=== PATIENT | female | born 1930 | race Caucasian/White ===

== ENCOUNTER 2016-06-17 20:45 | Emergency (ER) | payer MEDICARE ==
--- NOTE | 2016-06-17 21:31 | ERRECORD ---
[facility] EMERGENCY RECORD HPI FALL (20:56 [facility]) CHIEF COMPLAINT: Patient presents for evaluation of fall, from standing, landing on tile floor, landing on head. HISTORIAN: History provided by patient, 85F presents with EMS from [place] after a mechanical fall. States she tripped and fell, hitting her head on the tile floor. Denies palpitations, chest pain, or lightheadedness before the fall. Denies neck pain, denies LOC. Complains only of head pain in the area of the impact. Denies chest pain or shortness of breath. LOCATION: Symptoms are localized, most severe to right parietal frontal lobe. TIME COURSE: Sudden onset of symptoms, just prior to arrival. EXACERBATED BY: Patient's condition exacerbated by nothing. RELIEVED BY: Patient's condition relieved by nothing because patient has not tried anything for relief. RISK FACTORS: Risk factors for spinal injury, not applicable for this patient, Risk factors for intracranial bleed, include age very old. ROS (20:58 [facility]) CONSTITUTIONAL: Negative constitutional review of systems, Historian denies chills, denies fever. EYES: Negative eye review of systems, Historian denies eye pain, denies vision changes. ENT: Negative ears, nose, throat review of systems, Historian denies rhinorrhea, Historian denies sore throat, Historian denies voice changes. Large contusion right frontal lobe. CARDIOVASCULAR: Negative cardiovascular review of systems, Historian denies chest pain, denies palpitations. RESPIRATORY: Negative respiratory review of systems, Historian denies cough, denies shortness of breath. GI: Negative gastrointestinal review of systems, Historian denies abdominal pain, denies constipation, denies diarrhea, denies nausea, denies vomiting. GENITOURINARY FEMALE: Negative genitourinary review of systems, Historian denies dysuria, denies frequency. MUSCULOSKELETAL: Negative musculoskeletal review of systems, Historian denies back pain, denies fall, denies injury. SKIN: Negative skin review of systems, Historian denies rash, denies skin changes. NEUROLOGIC: Negative neurologic review of systems, Historian denies headache, denies mental status changes, denies paralysis, denies paresthesias, denies sensory changes. HEMO/LYMPHATIC: Normal hematologic/lymphatic system review, Historian denies abnormal blood clotting. ALLERGIC/IMMUNOLOGIC: Normal allergy/immunologic system review, Historian denies frequent infections. PAST MEDICAL HISTORY (21:00 [facility]) &a-1R&a+25V*p+0X*[id number]*c202B*c15G*c2P*p-0X&a-25V&a+1R Name: Eboni Cartagena : 1930 F85 MedRec: [id number] AcctNum: [id number] Prepared: [facility] Jun 17, 2016 22:54 by Interface Page 1 of 5 pMD [facility] EMERGENCY RECORD MEDICAL HISTORY: Past medical history includes history of diabetes, Notes: VTE, Past medical history includes cardiac history, arrhythmia, atrial fibrillation, unspecified valvular heart disease, Treated with thrombolytics, on WARFARIN, Treated with a pacemaker, Past medical history includes history of diabetes, Type II, Past medical history includes gastrointestinal disease, gastroesophageal reflux disease, Past medical history includes hematological history, iron deficiency anemia, Past medical history includes history of hyperlipidemia, high cholesterol, high triglycerides, Past medical history includes history of hypertension, which has been treated. REVIEWED 06/17/16. 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 REVIEWED 06/17/16. PSYCHIATRIC HISTORY: no history of suicidal ideations, No history of homicidal ideations, Psychiatric history includes, anxiety, depression. REVIEWED 06/17/16. SOCIAL HISTORY: Patient denies alcohol use, Patient denies drug use, Patient has no smoking history, Lives at home. REVIEWED 06/17/16. KNOWN ALLERGIES amiodarone (Unconfirmed) clonazepam (Unconfirmed): Reaction: HALLUCINATIONS cyclobenzaprine HCl (Unconfirmed): Reaction: HALLUCINATIONS Flexeril (Unconfirmed) KlonoPIN (Unconfirmed) lorazepam (Unconfirmed) morphine (Unconfirmed) CURRENT MEDICATIONS ferrous sulfate: TABLET : Strength - 325 mg (65 mg iron) : ORAL Patient Dose: 1 tab(s) Oral once a day. (21:24 [facility]) lisinopril: TABLET : Strength - 5 mg : ORAL Patient Dose: 1/2 tab(s) Oral once a day. (21:24 [facility]) Toprol XL: TABLET, EXTENDED RELEASE 24 HR : Strength - 100 mg : ORAL Patient Dose: 1 cap(s) Oral once a day. (21:24 [facility]) atorvastatin: TABLET : Strength - 40 mg : ORAL Patient Dose: 1 tab(s) Oral once a day (at bedtime). (21:24 [facility]) meclizine: TABLET : Strength - 25 mg : ORAL Patient Dose: 12.5 mg Oral every 6 hours PRN.VERTIGO. (21:24 [facility]) &a-1R&a+25V*p+0X*[id number]*c202B*c15G*c2P*p-0X&a-25V&a+1R Name: Eboni Cartagena : 1930 F85 MedRec: [id number] AcctNum: [id number] Prepared: Paola Jun 17, 2016 22:54 by Interface Page 2 of 5 pMD [facility] EMERGENCY RECORD Nitrostat: TABLET, SUBLINGUAL : Strength - 0.4 mg : SUBLINGUAL Patient Dose: 1 tab(s) Sublingual See Notes.1 EVERY 5 MINUTES NEEDED FOR CHEST PAIN x 3 DOSES. (21:24 [facility]) calcium: TABLET : Strength - 500 mg : ORAL Patient Dose: 600 mg Oral once a day. (21:24 [facility]) digoxin: TABLET : Strength - 125 mcg : ORAL Patient Dose: 1 tab(s) Oral.M/W/D. (21:24 [facility]) Lasix: TABLET : Strength - 20 mg : ORAL Patient Dose: 40 mg Oral once a day. (21:24 MVIL) sertraline: TABLET : Strength - 50 mg : ORAL Patient Dose: 150 mg Oral once a day. (21:24 MV[facility]) RisperDAL: TABLET : Strength - 0.5 mg : ORAL Patient Dose: 0.5 mg Oral As Needed. (21:24 [facility]) cyanocobalamin (vitamin B-12): TABLET : Strength - 500 mcg : ORAL Patient Dose: Oral once a day. (21:25 [facility]) latanoprost: DROPS : Strength - 0.005 % : OPHTHALMIC Patient Dose: 1 gtt Eyes Both once a day (at bedtime). (21:51 [facility]) nystatin: POWDER (GRAM) : Strength - 100,000 unit/gram : TOPICAL Patient Dose: 1 kolton Topical 3 times a day. (21:59 [facility]) fexofenadine: TABLET : Strength - 180 mg : ORAL Patient Dose: Oral As Needed. (22:02 [facility]) loperamide: TABLET : Strength - 2 mg : ORAL Patient Dose: Oral As Needed. (22:02 [facility]) VITAL SIGNS (20:53 [facility]) VITAL SIGNS: BP: 152/94 (Right Arm), Pulse: 81, Resp: 20, Temp: 97.6 (Oral), Pain: 0, O2 sat: 95 on Room Air, Time: 06/17/2016 20:53. PHYSICAL EXAM (20:58 [facility]) CONSTITUTIONAL: Vital signs reviewed, Patient afebrile, Pulse normal, Blood pressure normal, Respiratory rate normal, Patient appears non toxic, Patient appears pain free, Patient alert and oriented to person, place and time. HEAD: Head exam included findings of, Contusion to right frontal, Abrasion to right frontal, No lacerations, normocephalic. EYES: Eye exam normal, Eye exam included findings of eyelids normal to inspection, Pupils equally round and reactive to light, &a-1R&a+25V*p+0X*k2426X*c202B*c15G*c2P*p-0X&a-25V&a+1R Name: Eboni Cartagena : 1930 F85 MedRec: [id number] AcctNum: [id number] Prepared: Pa[facility] Jun 17, 2016 22:54 by Interface Page 3 of 5 D [facility] EMERGENCY RECORD Extraocular muscles intact, no nystagmus. ENT: ENT exam normal, Ear exam normal, external ear normal, tympanic membranes normal, no bleeding, Pharynx exam normal, Uvula exam normal, Tonsil exam normal, Mouth exam normal, mucous membranes moist, teeth normal. NECK: Neck exam normal, Neck exam included findings of normal range of motion, Trachea midline, no meningeal signs, no cervical adenopathy, no tenderness. RESPIRATORY CHEST: Respiratory and chest exam normal, Respiratory exam included findings of no respiratory distress, Breath sounds clear. CARDIOVASCULAR: Cardiovascular assessment normal, Cardiovascular exam included findings of heart rate regular rate and rhythm, Heart sounds normal. ABDOMEN FEMALE: Abdominal exam included findings of abdomen nontender, Bowel sounds normal, no distension, no mass, no pulsatile masses, no peritoneal signs, no rigidity, no guarding, no rebound, Rovsing's sign absent. BACK: Back exam normal, Back exam included findings of normal inspection, range of motion normal, no tenderness. UPPER EXTREMITY: Upper extremity exam normal, Upper extremity exam included findings of inspection normal, Range of motion normal, Motor strength normal, Sensation intact, Radial pulse normal. LOWER EXTREMITY: Lower extremity exam normal, Lower extremity exam included findings of inspection normal, Range of motion normal, Motor strength normal, Sensation intact, Posterior tibial pulse normal, Pedal pulse normal. NEURO: Neuro exam normal, Neuro exam findings include patient oriented to person, place and time, Speech normal, Gait normal, Cranial nerves intact, no focal motor deficits, no focal sensory deficits. SKIN: Skin exam normal, Skin exam included findings of skin warm, dry, and normal in color, no rash. PSYCHIATRIC: Psychiatric exam normal, Normal affect. DOCTOR NOTES (21:18 [facility]) TEXT: Patient presented after a mechanical trip and fall with head impact. She is neurologically intact with a negative head CT and no concern for syncopal event leading to the fall. She does not need skin repair. She can be safely discharged home to follow up as an outpatient. PATIENT STATUS: Patient's status is unchanged since arrival to emergency department. PATIENT PLAN: The patient will be discharged, The patient will follow up with primary care physician. DATA REVIEWED: Xray data reviewed. PROBLEM LIST No recorded problems &a-1R&a+25V*p+0X*[id number]*c202B*c15G*c2P*p-0X&a-25V&a+1R Name: Eboni Cartagena : 1930 F85 MedRec: [id number] AcctNum: [id number] Prepared: [facility] Jun 17, 2016 22:54 by Interface Page 4 of 5 pMD [facility] EMERGENCY RECORD DIAGNOSIS (21:23 [facility]) FINAL: PRIMARY: head contusion. PRESCRIPTION No recorded prescriptions DISPOSITION PATIENT: Disposition Type: Discharge, Disposition: [facility]. [facility] left the department. (22:47 [facility]) Villegas: DEION=MD Joelle, Andry MVIL=EDWARD Garcia, Taylor &a-1R&a+25V*p+0X*a1997B*c202B*c15G*c2P*p-0X&a-25V&a+1R Name: Eboni Cartagena : 1930 F85 MedRec: [id number] AcctNum: [id number] Prepared: Paola Jun 17, 2016 22:54 by Interface Page 5 of 5 pMD MTDD
--- NOTE | 2016-06-17 21:32 | PICIS ---
[facility] EMERGENCY RECORD TRIAGE (20:55 MVIL) TRIAGE NOTES: S/P FALL AND HIT HER HEAD WITH THE FLOOR. (20:55 MVIL) PATIENT: NAME: Eboni Cartagena, AGE: 85, GENDER: female, : Sat 1930, TIME OF GREET: [place] Jun 17, 2016 20:46, PREFERRED LANGUAGE: Bulgarian, ETHNICITY: Not or , ECODE BILLING MAP: [facility], SSN: [id number], Zip Code: [address], KG WEIGHT: 68.04, HEIGHT/LENGTH: 165.10cm, BMI: 24.96, PHONE: , , , PERSON ID: [id number], PAYMENT: [employer], PCP: DO PACK KRISTEL. (20:55 MVIL) COMPLAINT: FALL. (20:55 MVIL) ADMISSION: URGENCY: 3 Urgent, [facility] SOURCE: [facility], TRANSPORT: CAR, BED: ER -02. (20:55 MVIL) ASSESSMENT: Assessment: S/P FALL. HIT HEAD ON FLOOR. NOT ON ANY BLOOD THINNERS., Symptoms began 06/17/2016 20:59, Symptoms began 30 min ago. (21:00 MVIL) PAIN: No complaint of pain. (21:00 MVIL) IMMUNIZATIONS: Flu vaccine up to date, Tetanus immunization up to date, Pneumococcal vaccine up to date. (21:00 MVIL) SIRS SCORING: Heart Rate 55-109 (0), Temp range 96.8-101.1 (0), respiratory rate 12-24 (0), Mental Status altered: no (0). (21:00 MVIL) TRIAGE SCREENING: Patient denies suicidal ideation, Patient denies presence of domestic violence. (21:00 MVIL) PROVIDERS: TRIAGE NURSE: Taylor Garcia RN. (20:55 MVIL) VITAL SIGNS: BP 152/94, (Right Arm), Pulse 81, Resp 20, Temp 97.6, (Oral), Pain 0, O2 Sat 95, on Room Air, Time 06/17/2016 20:53. (20:53 MVIL) PREVIOUS VISIT ALLERGIES: amiodarone, Flexeril, KlonoPIN. (20:55 MVIL) amiodarone, Flexeril, KlonoPIN. (21:00 MVIL) KNOWN ALLERGIES amiodarone (Unconfirmed) clonazepam (Unconfirmed): Reaction: HALLUCINATIONS cyclobenzaprine HCl (Unconfirmed): Reaction: HALLUCINATIONS Flexeril (Unconfirmed) KlonoPIN (Unconfirmed) lorazepam (Unconfirmed) morphine (Unconfirmed) CURRENT MEDICATIONS ferrous sulfate: TABLET : Strength - 325 mg (65 mg iron) : ORAL Patient Dose: 1 tab(s) Oral once a day. (21:24 MVIL) lisinopril: TABLET : Strength - 5 mg : ORAL Patient Dose: 1/2 tab(s) Oral once a day. (21:24 MVIL) Toprol XL: &a-1R&a+25V*p+0X*y5348Y*c202B*c15G*c2P*p-0X&a-25V&a+1R Name: Eboni Cartagena : 1930 F85 MedRec: [id number] AcctNum: [id number] Prepared: [facility] Jun 17, 2016 23:00 by Interface Page 1 of 7 pMD [facility] EMERGENCY RECORD TABLET, EXTENDED RELEASE 24 HR : Strength - 100 mg : ORAL Patient Dose: 1 cap(s) Oral once a day. (21:24 MVIL) atorvastatin: TABLET : Strength - 40 mg : ORAL Patient Dose: 1 tab(s) Oral once a day (at bedtime). (21:24 MVIL) meclizine: TABLET : Strength - 25 mg : ORAL Patient Dose: 12.5 mg Oral every 6 hours PRN.VERTIGO. (21:24 MVIL) Nitrostat: TABLET, SUBLINGUAL : Strength - 0.4 mg : SUBLINGUAL Patient Dose: 1 tab(s) Sublingual See Notes.1 EVERY 5 MINUTES NEEDED FOR CHEST PAIN x 3 DOSES. (21:24 MVIL) calcium: TABLET : Strength - 500 mg : ORAL Patient Dose: 600 mg Oral once a day. (21:24 MVIL) digoxin: TABLET : Strength - 125 mcg : ORAL Patient Dose: 1 tab(s) Oral.M/W/D. (21:24 MVIL) Lasix: TABLET : Strength - 20 mg : ORAL Patient Dose: 40 mg Oral once a day. (21:24 MVIL) sertraline: TABLET : Strength - 50 mg : ORAL Patient Dose: 150 mg Oral once a day. (21:24 MVIL) RisperDAL: TABLET : Strength - 0.5 mg : ORAL Patient Dose: 0.5 mg Oral As Needed. (21:24 MVIL) cyanocobalamin (vitamin B-12): TABLET : Strength - 500 mcg : ORAL Patient Dose: Oral once a day. (21:25 MVIL) latanoprost: DROPS : Strength - 0.005 % : OPHTHALMIC Patient Dose: 1 gtt Eyes Both once a day (at bedtime). (21:51 MVIL) nystatin: POWDER (GRAM) : Strength - 100,000 unit/gram : TOPICAL Patient Dose: 1 kolton Topical 3 times a day. (21:59 MVIL) fexofenadine: TABLET : Strength - 180 mg : ORAL Patient Dose: Oral As Needed. (22:02 MVIL) loperamide: TABLET : Strength - 2 mg : ORAL Patient Dose: Oral As Needed. (22:02 MVIL) VITAL SIGNS (20:53 MVIL) VITAL SIGNS: BP: 152/94 (Right Arm), Pulse: 81, Resp: 20, Temp: 97.6 (Oral), Pain: 0, O2 sat: 95 on Room Air, Time: 06/17/2016 20:53. &a-1R&a+25V*p+0X*[id number]*c202B*c15G*c2P*p-0X&a-25V&a+1R Name: Eboni Cartagena : 1930 F85 MedRec: [id number] AcctNum: [id number] Prepared: [place] Jun 17, 2016 23:00 by Interface Page 2 of 7 pMD [facility] EMERGENCY RECORD NURSING ASSESSMENT: FOCUSED (21:00 MVIL) CONSTITUTIONAL: Patient arrives, via Emergency Medical Services, FROM [facility], History obtained from patient, Patient appears comfortable, Patient cooperative, Patient alert, Oriented to person, place and time, Skin warm, Skin dry, Skin normal in color, Mucous membranes pink, Mucous membranes moist, Patient is well-groomed, Patient complains of FALL, TRIPPED AND FELL HITTING HER HEAD ON THE FLOOR. HAS HEMATOMA ABOVE RIGHT EYE ON FOREHEAD. PAIN: Onset of pain 06/17/2016 21:02, Patient rates pain as 0 out of 10, Pain exacerbated by nothing, Nothing has been tried to alleviate the pain. EYES: Focused eye assessment finding include pupils equally round and reactive to light, Left pupil 3 mm in size, Right pupil 3 mm in size. NEURO: Focused neuro assessment findings include patient alert, cooperative, No facial droop noted, Speech coherent, no weakness, no numbness. GCS: Eye opening: (4) - Spontaneous, Verbal: (5) - Oriented/conversive, Motor: (6) - Obeys commands/Spontaneous, GCS Total: 15. RESPIRATORY: Focused respiratory assessment findings include breath sounds clear. ABDOMEN: Focused abdominal assessment findings include abdomen soft, non tender, Bowel sounds present. GENITOURINARY FEMALE: Focused genitourinary assessment not applicable. MUSCULOSKELETAL: Focused musculoskeletal assessment findings include normal range of motion. LACERATION: Focused laceration assessment findings include laceration to RIGHT SIDE FOREHEAD ABOVE RIGHT EYE. SAFETY: Side rails up, Cart/Stretcher in lowest position, Family at bedside, Call light within reach, Hospital ID band on. NURSING PROCEDURE: DISCHARGE NOTE (22:04 MVIL) DISCHARGE: Patient discharged to fpc, [facility], Copy of chart sent to fpc with patient, on a stretcher, transported via non-urgent ambulance, accompanied by emergency medical services personnel, Summary of Care printed/ provided, Patient requested and was provided an electronic copy of Discharge Instructions, Transition record given to patient, Discharge instructions given to patient, Above person(s) verbalized understanding of discharge instructions and follow-up care. BELONGINGS: Belongings and valuables with patient at time of discharge include:. NURSING PROCEDURE: NURSE NOTES (22:44 CFRA) NURSES NOTES: Notes: [facility] arrived to ER. Report given by Taylor Lopez RN. Discharge instructions given to EMS. Pt secured to stretcher in stable condition. NAD noted. &a-1R&a+25V*p+0X*[id number]*c202B*c15G*c2P*p-0X&a-25V&a+1R Name: Eboni Cartagena : 1930 F85 MedRec: [id number] AcctNum: [id number] Prepared: TueJun 17, 2016 23:00 by Interface Page 3 of 7 pMD [facility] EMERGENCY RECORD NURSING PROCEDURE: TRANSPORT TO TESTS PATIENT IDENTIFIER: Patient actively involved in identification process, Patient's identity verified by patient stating name, Patient's identity verified by hospital ID bracelet. (21:05 MVIL) TRANSPORT TO TESTS: Transport indicated to facilitate diagnosis, Patient transported to CT scan, via cart, Accompanied by x-ray lot technician. (21:05 MVIL) FOLLOW-UP: After procedure, patient returned to emergency department. (21:16 MVIL) ORDER DETAILS Order Name: CT Brain WO Con, Status: Active, Time: 20:56 06/17/2016, User: DEION, - Ordered for: MD Lai Jason, - Entered by: MD Lai Jason - [facility] Jun 17, 2016 20:56, - Quantity: 1. [facility] CHIEF COMPLAINT: Patient presents for evaluation of fall, from standing, landing on tile floor, landing on head. HISTORIAN: History provided by patient, 85F presents with EMS from [place] after a mechanical fall. States she tripped and fell, hitting her head on the tile floor. Denies palpitations, chest pain, or lightheadedness before the fall. Denies neck pain, denies LOC. Complains only of head pain in the area of the impact. Denies chest pain or shortness of breath. LOCATION: Symptoms are localized, most severe to right parietal frontal lobe. TIME COURSE: Sudden onset of symptoms, just prior to arrival. EXACERBATED BY: Patient's condition exacerbated by nothing. RELIEVED BY: Patient's condition relieved by nothing because patient has not tried anything for relief. RISK FACTORS: Risk factors for spinal injury, not applicable for this patient, Risk factors for intracranial bleed, include age very old. ROS (20:58 [facility]) CONSTITUTIONAL: Negative constitutional review of systems, Historian denies chills, denies fever. EYES: Negative eye review of systems, Historian denies eye pain, denies vision changes. ENT: Negative ears, nose, throat review of systems, Historian denies rhinorrhea, Historian denies sore throat, Historian denies voice changes. Large contusion right frontal lobe. CARDIOVASCULAR: Negative cardiovascular review of systems, Historian denies chest pain, denies palpitations. RESPIRATORY: Negative respiratory review of systems, Historian &a-1R&a+25V*p+0X*a5446A*c202B*c15G*c2P*p-0X&a-25V&a+1R Name: Eboni Cartagena : 1930 F85 MedRec: [id number] AcctNum: [id number] Prepared: TueJun 17, 2016 23:00 by Interface Page 4 of 7 pMD [facility] EMERGENCY RECORD denies cough, denies shortness of breath. GI: Negative gastrointestinal review of systems, Historian denies abdominal pain, denies constipation, denies diarrhea, denies nausea, denies vomiting. GENITOURINARY FEMALE: Negative genitourinary review of systems, Historian denies dysuria, denies frequency. MUSCULOSKELETAL: Negative musculoskeletal review of systems, Historian denies back pain, denies fall, denies injury. SKIN: Negative skin review of systems, Historian denies rash, denies skin changes. NEUROLOGIC: Negative neurologic review of systems, Historian denies headache, denies mental status changes, denies paralysis, denies paresthesias, denies sensory changes. HEMO/LYMPHATIC: Normal hematologic/lymphatic system review, Historian denies abnormal blood clotting. ALLERGIC/IMMUNOLOGIC: Normal allergy/immunologic system review, Historian denies frequent infections. PAST MEDICAL HISTORY (21:00 MVIL) MEDICAL HISTORY: Past medical history includes history of diabetes, Notes: VTE, Past medical history includes cardiac history, arrhythmia, atrial fibrillation, unspecified valvular heart disease, Treated with thrombolytics, on WARFARIN, Treated with a pacemaker, Past medical history includes history of diabetes, Type II, Past medical history includes gastrointestinal disease, gastroesophageal reflux disease, Past medical history includes hematological history, iron deficiency anemia, Past medical history includes history of hyperlipidemia, high cholesterol, high triglycerides, Past medical history includes history of hypertension, which has been treated. REVIEWED 06/17/16. 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 REVIEWED 06/17/16. PSYCHIATRIC HISTORY: no history of suicidal ideations, No history of homicidal ideations, Psychiatric history includes, anxiety, depression. REVIEWED 06/17/16. SOCIAL HISTORY: Patient denies alcohol use, Patient denies drug use, Patient has no smoking history, Lives at home. REVIEWED 06/17/16. PHYSICAL EXAM (20:58 [facility]) CONSTITUTIONAL: Vital signs reviewed, Patient afebrile, Pulse normal, Blood pressure normal, Respiratory rate normal, Patient appears non toxic, Patient appears pain free, Patient alert and oriented to person, place and time. HEAD: Head exam included findings of, Contusion to right frontal, Abrasion to right frontal, No lacerations, normocephalic. &a-1R&a+25V*p+0X*l2225W*c202B*c15G*c2P*p-0X&a-25V&a+1R Name: Eboni Cartagena : 1930 F85 MedRec: [id number] AcctNum: [id number] Prepared: [place] Jun 17, 2016 23:00 by Interface Page 5 of 7 pMD [facility] EMERGENCY RECORD EYES: Eye exam normal, Eye exam included findings of eyelids normal to inspection, Pupils equally round and reactive to light, Extraocular muscles intact, no nystagmus. ENT: ENT exam normal, Ear exam normal, external ear normal, tympanic membranes normal, no bleeding, Pharynx exam normal, Uvula exam normal, Tonsil exam normal, Mouth exam normal, mucous membranes moist, teeth normal. NECK: Neck exam normal, Neck exam included findings of normal range of motion, Trachea midline, no meningeal signs, no cervical adenopathy, no tenderness. RESPIRATORY CHEST: Respiratory and chest exam normal, Respiratory exam included findings of no respiratory distress, Breath sounds clear. CARDIOVASCULAR: Cardiovascular assessment normal, Cardiovascular exam included findings of heart rate regular rate and rhythm, Heart sounds normal. ABDOMEN FEMALE: Abdominal exam included findings of abdomen nontender, Bowel sounds normal, no distension, no mass, no pulsatile masses, no peritoneal signs, no rigidity, no guarding, no rebound, Rovsing's sign absent. BACK: Back exam normal, Back exam included findings of normal inspection, range of motion normal, no tenderness. UPPER EXTREMITY: Upper extremity exam normal, Upper extremity exam included findings of inspection normal, Range of motion normal, Motor strength normal, Sensation intact, Radial pulse normal. LOWER EXTREMITY: Lower extremity exam normal, Lower extremity exam included findings of inspection normal, Range of motion normal, Motor strength normal, Sensation intact, Posterior tibial pulse normal, Pedal pulse normal. NEURO: Neuro exam normal, Neuro exam findings include patient oriented to person, place and time, Speech normal, Gait normal, Cranial nerves intact, no focal motor deficits, no focal sensory deficits. SKIN: Skin exam normal, Skin exam included findings of skin warm, dry, and normal in color, no rash. PSYCHIATRIC: Psychiatric exam normal, Normal affect. EVENTS TRANSFER: Triage to Emergency Emergency Room -02. (TueJun 17, 2016 20:55 MVIL) Removed from Emergency Emergency Room -02. (22:47 MVIL) [facility] TEXT: Patient presented after a mechanical trip and fall with head impact. She is neurologically intact with a negative head CT and no concern for syncopal event leading to the fall. She does not need skin repair. She can be safely discharged home to follow up as an outpatient. PATIENT STATUS: Patient's status is unchanged since arrival to emergency department. &a-1R&a+25V*p+0X*y6205I*c202B*c15G*c2P*p-0X&a-25V&a+1R Name: Eboni Cartagena : 1930 F85 MedRec: [id number] AcctNum: [id number] Prepared: TueJun 17, 2016 23:00 by Interface Page 6 of 7 pMD [facility] EMERGENCY RECORD PATIENT PLAN: The patient will be discharged, The patient will follow up with primary care physician. DATA REVIEWED: Xray data reviewed. PROBLEM LIST No recorded problems [facility]AG[facility]IS (21:23 [facility] FINAL: PRIMARY: head contusion. DISPOSITION PATIENT: Disposition Type: Discharge, Disposition: *Discharge Home. (21:23 JJA) Patient left the department. (22:47 MVIL) IN[facility]CTION (21:24 [facility] DISCHARGE: SCALP CONTUSION W/ WAKE UP, FALL PREVENTION. FOLLOWUP: DO PACK KRISTEL, Family Practice, [address] [address], [phone]. SPECIAL: Fall prevention. Follow up with Dr. Pack. Return to the ED if you develop worsening headache. PRESCRIPTION No recorded prescriptions ADMIN (21:24 [facility]) DIGITAL SIGNATURE: MD Lai Jason. Villegas: CFRA=EDWARD Frost, Catherine JC=MD Lai Jason MVIL=EDWARD Garcia, Taylor &a-1R&a+25V*p+0X*h8593X*c202B*c15G*c2P*p-0X&a-25V&a+1R Name: Eboni Cartagena : 1930 F85 MedRec: [id number] AcctNum: [id number] Prepared: [facility] Jun 17, 2016 23:00 by Interface Page 7 of 7 pMD MTDD
--- NOTE | 2016-06-17 23:37 | CT ---
CT OF THE BRAIN WITHOUT CONTRAST 06/17/16 Comparison is made with the CT dated 05/10/16. No intracranial bleeding or extra-axial hematoma was seen. The ventricle are normal in size for age and atrophy. 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 One particular ly prominent area in the left frontal bone may even be a small osteoma. This has not changed in the interval. Patchy areas of hypolucency are present in the deep white matter, especially in the pariet al regions bilaterally. This is similar to before as well as probably represents chronic ischemic ch anges. Small acute strokes would be missed against this background and only be confirmable via MRI. The calvarium appears intact. There is no air fluid level in the sphenoid sinus and the mastoid air cells are clear. There is a retention cyst in the right side of the sphenoid sinus which was seen pr eviously. A very small right frontal scalp hematoma was noted. IMPRESSION: Chronic ischemic changes but no acute traumatic intracranial findings. POS: HOME
== END 2016-06-17 22:45 | disposition home or self-care (01) ==
LOC: BURERS 20:45
DX: S00.03XA Contusion of scalp, initial encounter (principal); I10 Essential (primary) hypertension; E11.9 Type 2 diabetes mellitus without complications; I48.91 Unspecified atrial fibrillation; K21.9 Gastro-esophageal reflux disease without esophagitis; F31.9 Bipolar disorder, unspecified; F41.9 Anxiety disorder, unspecified; E78.2 Mixed hyperlipidemia; Z95.1 Presence of aortocoronary bypass graft; Z90.49 Acquired absence of other specified parts of digestive tract; Z95.0 Presence of cardiac pacemaker; Z89.421 Acquired absence of other right toe(s); Z79.899 Other long term (current) drug therapy; W22.8XXA Striking against or struck by other objects, initial encounter
CPT/HCPCS: 70450; 82043; 82570; 87086